=== PATIENT | female | born 1975 | race Caucasian/White ===

== ENCOUNTER 2017-10-06 07:40 | Outpatient (CLI) | payer BC | END 2017-10-06 07:41 | disposition home or self-care (01) | LOC: BICMAMMO 07:40 | PROVIDERS: ATTEND Obstetrics & Gynecology | DX: Z12.31 Encounter for screening mammogram for malignant neoplasm of breast (principal) | CPT/HCPCS: 77063; 77067; G0202 ==

== ENCOUNTER 2017-10-14 07:22 | Outpatient (CLI) | payer BC | END 2017-10-14 07:23 | disposition home or self-care (01) | LOC: BICMAMMO 07:22 | PROVIDERS: ATTEND Obstetrics & Gynecology | DX: R92.8 Other abnormal and inconclusive findings on diagnostic imaging of breast (principal) | CPT/HCPCS: G0206-RT; G0279 ==

== ENCOUNTER 2018-04-15 10:18 | Outpatient (CLI) | payer BC | END 2018-04-15 10:19 | disposition home or self-care (01) | LOC: BICMAMMO 10:18 | PROVIDERS: ATTEND Obstetrics & Gynecology | DX: N63.10 Unspecified lump in the right breast, unspecified quadrant (principal) | CPT/HCPCS: G0279 ==

== ENCOUNTER 2018-09-30 14:48 | Outpatient (CLI) | payer BC ==
--- NOTE | 2018-09-30 16:13 | ULT ---
LIMITED RIGHT BREAST ULTRASOUND: Date: 09/30/18 PROVIDED CLINICAL HISTORY: 6 month follow-up. FINDINGS: Limited sonographic interrogation was performed at the 9 o'clock position of the right breast. There is a stable circumscribed hypoechoic mass with internal echoes and enhanced through-transmission like ly reflecting a debris-filled cyst. No significant interval change with respect to the 04/15/18 study . IMPRESSION: BIRADS Category 3 - Probably benign findings. 12 month sonographic and mammographic follow-up recommended. POS: OFF
== END 2018-09-30 14:49 | disposition home or self-care (01) ==
LOC: BICMAMMO 14:48
PROVIDERS: ATTEND Obstetrics & Gynecology
DX: R92.8 Other abnormal and inconclusive findings on diagnostic imaging of breast (principal)
CPT/HCPCS: 77066; G0279

== ENCOUNTER 2020-02-09 09:22 | Outpatient (CLI) | payer BC ==
--- NOTE | 2020-02-09 10:15 | MMO ---
Bilateral MAMMO Bilat Diag [facility]. CLINICAL HISTORY: Patient is 44 years old and is seen for diagnostic exam. The patient has no family history of breast cancer. The patient has no personal history of cancer. VIEWS: The views performed were: bilateral craniocaudal with tomosynthesis; bilateral mediolateral oblique with tomosynthesis; and bilateral mediolateral with tomosynthesis. FILMS COMPARED: The present examination has been compared to prior imaging studies performed at [facility] on 10/14/2017, 04/15/2018, 09/30/2018 and 02/09/2020. This study has been interpreted with the assistance of computer-aided detection. MAMMOGRAM FINDINGS: There are scattered fibroglandular densities. There is a stable nodule seen in the right breast. This is cystic by ultrasound. There are no suspicious masses, suspicious calcifications, or new areas of architectural distortion. IMPRESSION: THERE IS NO MAMMOGRAPHIC EVIDENCE OF MALIGNANCY. A ROUTINE FOLLOW-UP MAMMOGRAM IN 1 YEAR IS RECOMMENDED. THE RESULTS OF THIS EXAM WERE SENT TO THE PATIENT. ACR BI-RADS Category 2 - Benign finding MAMMOGRAPHY NOTE: 1. A negative mammogram report should not delay a biopsy if a dominant of clinically suspicious mass is present. 2. Approximately 10% to 15% of breast cancers are not detected by mammography. 3. Adenosis and dense breasts may obscure an underlying neoplasm. Reported by: MILENA AUGUSTIN MD Electonically Signed: [id number]
--- NOTE | 2020-02-09 10:45 | ULT ---
ULTRASOUND RIGHT BREAST: Date: 02/09/2020 INDICATION: Ultrasound of right breast performed in follow-up to a hypoechoic nodule seen in the right breast on prior exam. Comparison made to the prior ultrasound exam of 09/30/2018. FINDINGS: A circumscribed predominantly anechoic lesion is seen at 9 o'clock deep in the breast, unchanged from the prior exam. Findings are consistent with a small cyst. No suspicious sonographic finding. IMPRESSION: Ultrasound findings are BIRADS Category 2 - Benign findings. Recommend routine mammogram follow-up.
== END 2020-02-09 09:23 | disposition home or self-care (01) ==
LOC: BICMAMMO 09:22
PROVIDERS: ATTEND Obstetrics & Gynecology
DX: N63.10 Unspecified lump in the right breast, unspecified quadrant (principal)
CPT/HCPCS: 77066; G0279

== ENCOUNTER 2021-03-17 13:33 | Outpatient (CLI) | payer BC | END 2021-03-17 13:34 | disposition home or self-care (01) | LOC: BICMAMMO 13:33 | PROVIDERS: ATTEND Obstetrics & Gynecology | DX: Z12.31 Encounter for screening mammogram for malignant neoplasm of breast (principal) | CPT/HCPCS: 77063; 77067 ==

== ENCOUNTER 2021-09-15 07:34 | Outpatient (CLI) | payer BC | END 2021-09-15 07:35 | disposition home or self-care (01) | LOC: BICULT 07:34 | PROVIDERS: ATTEND Family Medicine | DX: R10.11 Right upper quadrant pain (principal) | CPT/HCPCS: 76700 ==